=== PATIENT | female | born 1995 | race American Indian/Alaskan Native ===

== ENCOUNTER 2017-02-16 05:40 | Inpatient (IN) | payer MEDICAID ==
[2017-02-16 06:34] LABS: Bacteria,Urine 1+ /HPF (Negative); Bilirubin,Urine NEG (Negative); Blood,Urine SM (Negative); Ketones,Urine NEG (Negative); Leukocyte Esterase,Urine LG (Negative); Mucus,Urine FEW /HPF; Nitrite,Urine NEG (Negative); Protein,Urine <15 mg/dL mg/dL (Negative); Urobilinogen,Urine < 2.0 mg/dL (<2.0)
[2017-02-16] MEDS ORDERED: ceFAZolin 2 GM in NACL 0.9% 100 ML IV ONE (07:07)
[2017-02-16] MEDS ORDERED: LACTATED RINGERS 1,000 ML IV SCH (07:08)
[2017-02-16] MEDS ORDERED: TYLENOL PO ONE (07:17)
[2017-02-16] MEDS ORDERED: MAGNESIUM SULFATE 4GM/100ML 4 GM/100 ML BAG IV ONE (09:06)
[2017-02-16] MEDS ORDERED: BRETHINE SUB-Q ONE (09:06)
[2017-02-16] MEDS: CELESTONE SOLUSPAN IM SCH (10:00)
[2017-02-16] MEDS ORDERED: MAGNESIUM SULFATE 40GM/1000ML 40 GM/1,000 ML BAG IV SCH (10:00)
[2017-02-16] MEDS: LACTATED RINGERS 1,000 ML IV SCH ×2 (10:20→22:34)
[2017-02-16 11:18] LABS: Basophils % (Auto) 0.3 % (0.0-1.8); Hematocrit 27.5 % (30.3-42.9); Hemoglobin 9.5 gm/dl (10.1-14.3); Mean Corpuscular HGB Conc 35 % (30-34); Mean Corpuscular Hemoglobin 29 pg (28-32); Mean Corpuscular Volume 84 fl (79-97); Platelet Count 192 K/mm3 (140-440); Red Blood Count 3.26 M/mm3 (3.65-5.03); Red Cell Distribution Width 13.3 % (13.2-15.2); White Blood Count 10.7 K/mm3 (4.5-11.0)
[2017-02-16] MEDS ORDERED: POLYCILLIN/NS 2 GM/100 ML 2 GM/100 ML BAG IV ONE (12:00)
[2017-02-16] MEDS ORDERED: FLAGYL PO ONE (17:30)
[2017-02-16] MEDS ORDERED: AMBIEN PO PRN (23:21)
[2017-02-16] MEDS ORDERED: NORCO 5/325 PO PRN (23:21)
[2017-02-16] MEDS ORDERED: TYLENOL PO PRN (23:22)
[2017-02-17] MEDS: CELESTONE SOLUSPAN IM SCH (09:42)
--- NOTE | 2017-02-17 13:42 | History and Physical Report ---
History of Present Illness Date of examination: 02/17/17 Date of admission: 02/16/17 05:59 History of present illness: 21yo EDC 04/07/17 @ 32.6 weeks gestation presented to triage with c/o regular contractions and was found to be 3cm on exam. Patient admitted and received Magnesium Sulfate and steroids. Today denies contraction, reports FM, denies VB or LOF. Past History Past Medical History: no pertinent history Past Surgical History: no surgical history Family/Genetic History: none Social history: no significant social history - Obstetrical History Expected Date of Delivery: 04/07/17 Actual Gestation: 33 Week(s) 0 Day(s) : 4 Para: 1 Hx # Term Pregnancies: 1 Number of Living Children: 1 Medications and Allergies Allergies Allergy/AdvReac Type Severity Reaction Status Date / Time No Known Allergies Allergy Verified 09/14/14 20:12 Home Medications Medication Instructions Recorded Confirmed Last Taken Type No Known Home Medications [No 02/16/17 02/16/17 Unknown History Reported Home Medications] Active Meds: Active Medications Acetaminophen (Tylenol) 1,000 mg PO Q6H PRN PRN Reason: Pain, Mild (1-3) Last Admin: 02/16/17 23:40 Dose: 1,000 mg Acetaminophen/Hydrocodone Bitart ([place] 5/325) 2 each PO Q4H PRN PRN Reason: Pain, Moderate (4-6) Betamethasone Acet/Betameth SodPhos ([place] Soluspan) 12 mg IM Q24HR AIDAN Last Admin: 02/17/17 09:42 Dose: 12 mg Lactated Ringer's (Lactated Ringers) 1,000 mls @ 999 mls/hr IV DIRECT AIDAN Last Admin: 02/16/17 07:30 Dose: 999 mls/hr Lactated Ringer's (Lactated Ringers) 1,000 mls @ 75 mls/hr IV DIRECT AIDAN Last Admin: 02/16/17 22:34 Dose: 75 mls/hr Magnesium Sulfate (Magnesium Sulfate 40gm/1000ml) 40 gm in 1,000 mls @ 50 mls/ hr IV DIRECT AIDAN PRN Reason: 2 GM/HR Last Infusion: 02/16/17 10:50 Dose: 1.5 gm/hr, 37.5 mls/hr Zolpidem Tartrate (Ambien) 5 mg PO QHS PRN PRN Reason: Sleep Review of Systems All systems: negative Genitourinary: no vaginal bleeding, no vaginal discharge, no leakage of fluid, no genital sores, no contractions - Vital Signs Vital signs: Vital Signs Temp Pulse Resp BP 98.1 F 72 18 116/78 02/16/17 06:11 02/16/17 06:11 02/16/17 06:11 02/16/17 06:11 Temp Pulse Resp BP Pulse Ox 97.4 F L 99 H 14 110/55 99 02/17/17 08:54 02/17/17 13:19 02/17/17 08:54 02/17/17 13:19 02/16/17 22:34 - Physical Exam Genitourinary (Female): Positive: normal external genitalia, normal perenium - Obstetrical FHR: category 1 Uterine Contraction Monitor Mode: External Uterine Contraction Frequency (min): occasional Uterine Contraction Pattern: Irregular Uterine Tone Measurement Phase: Resting Uterine Contraction Intensity: Mild Results Result Diagrams: 02/16/17 10:36 Abnormal lab results 02/16/17 02/17/17 02/17/17 Range/Units 18:48 00:19 06:04 Magnesium 5.40 H 5.60 H 5.90 H (1.7-2.3) mg/dL 02/17/17 Range/Units 12:00 Magnesium 6.00 H (1.7-2.3) mg/dL All other labs normal. Assessment and Plan A: IUP at 32.6 week gestation Labor S/P Magnesium Sulfate and Steroid administration P: MD mehta't
--- NOTE | 2017-02-18 07:13 | Admit Criteria Form ---
Admission Criteria Documentation: LABOR, THREATENED Clinical Indications for Admission to Inpatient Care (Place 'X' for any and all applicable criteria): Admission to inpatient status for two mid-nights or more is indicated for ANY ONE of the following 1,2,3: [ ]I. Condition requiring premature delivery (eg, premature rupture of membranes with nonreassuring status, chorioamnionitis) [A]. See Vaginal Delivery guideline as appropriate [ ]II. premature rupture of membranes (PPROM) (eg, for monitoring of well-being, development of chorioamnionitis)[A][B] [ ]III. distress or demise [ ]IV. Significant maternal disease (eg, infection) identified (eg, pyelonephritis, pneumonia) that requires initial inpatient treatment (eg, IV antibiotics, close monitoring) [ ]V. Significant vaginal bleeding or any vaginal bleeding with known placental previa, vasa previa, or placenta accreta.(7)(8) See Delivery guideline as appropriate. [ ]. Complications of tocolytic treatment (eg, pulmonary edema, hypotension) (9)(10) [X]VII. Inpatient admission required rather than observation care (Also use Labor, Threatened: Observation Care Criteria as appropriate) because of 1 or more of the following: [X]a) Continued monitoring that requires inpatient care [ ]b) Tocolytic therapy needed that requires inpatient care [ ]c) Inability to stop labor. See Vaginal Delivery or Delivery guideline as appropriate. Extended stay beyond goal length of stay may be needed for (1)(2) [ ]a) Significant infection (eg, pneumonia,chorioamnionitis)(17) [ ]b) Continued uterine contractions [ ]c) demise [ ]d) Continued vaginal bleeding or placental abnormality [ ]e) Complications of tocolytic treatment (eg, pulmonary edema, hypotension)( 15) [ ]f) Expectant management of premature rupture of membranes[A] The original [employer] [facility] content created by Macey Fox has been revised. The portions of the content which have been revised are identified through the use of italic text or in bold, and Macey Fox has neither reviewed nor approved the modified material. All other unmodified content is copyright [facility] [employer]. Please see references footnoted in the original [facility] edition 2017 Admission Criteria Met: Yes
--- NOTE | 2017-02-18 08:43 | Progress Note ---
Assessment and Plan A/P IUP 33 weeks labor s/p mag s/p BMZ UTi- will treat with abx ( rocephin) continue close observation consult with [facility] ( high risk) Subjective - Subjective Date of service: 02/18/17 Principal diagnosis: labor, s/p mag and steroids Patient reports: movement normal, no new complaints, no loss of fluid, no vaginal bleeding, no contractions Objective - Vital Signs Vital Signs: Vital Signs - 12hr 02/17/17 02/17/17 02/17/17 20:42 20:47 20:52 Temperature Pulse Rate 94 H 82 98 H Respiratory Rate Blood Pressure O2 Sat by Pulse 99 99 98 Oximetry 02/17/17 02/17/17 02/17/17 20:57 21:02 21:07 Temperature Pulse Rate 95 H 99 H 84 Respiratory Rate Blood Pressure O2 Sat by Pulse 98 97 98 Oximetry 02/17/17 02/17/17 02/17/17 21:12 21:17 21:22 Temperature Pulse Rate 92 H 82 91 H Respiratory Rate Blood Pressure O2 Sat by Pulse 98 98 98 Oximetry 02/17/17 02/17/17 02/17/17 21:27 21:32 21:37 Temperature Pulse Rate 100 H 84 85 Respiratory Rate Blood Pressure O2 Sat by Pulse 99 98 97 Oximetry 02/17/17 02/17/17 02/17/17 21:42 21:47 21:52 Temperature Pulse Rate 87 88 91 H Respiratory Rate Blood Pressure O2 Sat by Pulse 97 97 97 Oximetry 02/17/17 02/17/17 02/17/17 21:57 22:02 22:07 Temperature Pulse Rate 86 92 H 88 Respiratory Rate Blood Pressure O2 Sat by Pulse 97 97 97 Oximetry 02/17/17 02/17/17 02/17/17 22:12 22:17 22:22 Temperature Pulse Rate 91 H 93 H 95 H Respiratory Rate Blood Pressure O2 Sat by Pulse 97 97 99 Oximetry 02/17/17 02/17/17 02/17/17 22:27 22:32 22:44 Temperature Pulse Rate 75 78 87 Respiratory Rate Blood Pressure O2 Sat by Pulse 99 99 100 Oximetry 02/17/17 02/17/17 02/17/17 22:49 22:54 22:59 Temperature Pulse Rate 75 81 85 Respiratory Rate Blood Pressure O2 Sat by Pulse 98 98 98 Oximetry 02/17/17 02/17/17 02/17/17 23:04 23:09 23:14 Temperature Pulse Rate 91 H 87 87 Respiratory Rate Blood Pressure O2 Sat by Pulse 98 98 97 Oximetry 02/17/17 02/17/17 02/17/17 23:19 23:24 23:29 Temperature Pulse Rate 98 H 90 86 Respiratory Rate Blood Pressure O2 Sat by Pulse 98 98 98 Oximetry 02/17/17 02/17/17 02/17/17 23:34 23:39 23:44 Temperature Pulse Rate 92 H 88 94 H Respiratory Rate Blood Pressure O2 Sat by Pulse 98 98 99 Oximetry 02/17/17 02/17/17 02/17/17 23:49 23:54 23:59 Temperature Pulse Rate 92 H 87 95 H Respiratory Rate Blood Pressure O2 Sat by Pulse 99 98 98 Oximetry 02/18/17 02/18/17 02/18/17 00:04 00:09 00:14 Temperature Pulse Rate 90 96 H 90 Respiratory Rate Blood Pressure O2 Sat by Pulse 98 99 98 Oximetry 02/18/17 02/18/17 02/18/17 00:19 00:24 00:29 Temperature Pulse Rate 92 H 91 H 93 H Respiratory Rate Blood Pressure O2 Sat by Pulse 98 98 98 Oximetry 02/18/17 02/18/17 02/18/17 00:34 00:39 00:44 Temperature Pulse Rate 94 H 94 H 94 H Respiratory Rate Blood Pressure O2 Sat by Pulse 99 98 98 Oximetry 02/18/17 02/18/17 02/18/17 00:49 00:54 00:59 Temperature Pulse Rate 92 H 89 96 H Respiratory Rate Blood Pressure O2 Sat by Pulse 97 98 98 Oximetry 02/18/17 02/18/17 02/18/17 01:04 01:09 01:14 Temperature Pulse Rate 95 H 96 H 93 H Respiratory Rate Blood Pressure O2 Sat by Pulse 98 98 98 Oximetry 02/18/17 02/18/17 02/18/17 01:19 01:24 01:29 Temperature Pulse Rate 93 H 91 H 91 H Respiratory Rate Blood Pressure O2 Sat by Pulse 98 98 98 Oximetry 02/18/17 02/18/17 02/18/17 01:34 01:39 01:44 Temperature Pulse Rate 90 90 92 H Respiratory Rate Blood Pressure O2 Sat by Pulse 98 98 98 Oximetry 02/18/17 02/18/1717 01:49 01:54 04:39 Temperature Pulse Rate 86 90 85 Respiratory Rate Blood Pressure 108/60 O2 Sat by Pulse 98 98 Oximetry 02/18/17 02/18/17 02/18/17 04:43 07:19 07:21 Temperature 98.7 F Pulse Rate 93 H 101 H Respiratory 16 Rate Blood Pressure 99/55 O2 Sat by Pulse 98 Oximetry 02/18/17 02/18/17 02/18/17 07:24 07:26 07:31 Temperature 98.2 F Pulse Rate 87 96 H 81 Respiratory 20 Rate Blood Pressure 99/55 O2 Sat by Pulse 98 98 Oximetry 02/18/17 02/18/17 02/18/17 07:36 07:41 07:46 Temperature Pulse Rate 86 90 97 H Respiratory Rate Blood Pressure O2 Sat by Pulse 97 96 97 Oximetry - Exam Breasts: deferred Cardiovascular: Regular rate, Normal S1 Lungs: Clear to auscultation, Normal air movement Abdomen: Present: normal appearance, soft, normal bowel sounds. Absent: distention, tenderness, guarding Uterus: Present: normal, firm. Absent: bogginess, tenderness FHR: auscultation normal, category 1 Extremities: normal Deep Tendon Reflex Grade: Normal +2 - Labs Labs: Abnormal Labs 02/16/17 02/16/17 02/16/17 10:36 18:48 Unknown RBC 3.26 L Hgb 9.5 L Hct 27.5 L MCHC 35 H [place] % (Auto) 8.4 H [place] # 0.9 H Seg Neutrophils % 75.8 H Seg Neutrophils # 8.1 H Magnesium 5.40 H Urine pH 8.0 H Urine WBC (Auto) 66.0 H 02/17/17 02/17/17 02/17/17 00:19 06:04 12:00 RBC Hgb Hct MCHC [place] % (Auto) [place] # Seg Neutrophils % Seg Neutrophils # Magnesium 5.60 H 5.90 H 6.00 H Urine pH Urine WBC (Auto) Laboratory Results - last 24 hr 02/17/17 12:00 Magnesium 6.00 H
[2017-02-18] MEDS: LACTATED RINGERS 1,000 ML IV SCH (09:28)
[2017-02-18] MEDS ORDERED: ROCEPHIN/NS 1 GM/50 ML 1 GM/50 ML BAG IV SCH (10:00)
--- NOTE | 2017-02-18 12:00 | Consultation ---
History of Present Illness Reason for consult: other (21yo EDC 04/07/17 @ 33.1 weeks gestation presented to triage on 02/16/17 with c/o regular contractions and was found to be 3 cm on exam. Patient was admitted and S/P Magnesium Sulfate and steroids for FLM . Consult requested today for discharge assessment . Today denies contraction, reports FM, denies VB , Temp/chills or LOF. ) Past History Past Medical History: no pertinent history Past Surgical History: no surgical history Family/Genetic History: none - Obstetrical History : 4 Medications and Allergies Allergies Allergy/AdvReac Type Severity Reaction Status Date / Time No Known Allergies Allergy Verified 09/14/14 20:12 Home Medications Medication Instructions Recorded Confirmed Last Taken Type No Known Home Medications [No 02/16/17 02/16/17 Unknown History Reported Home Medications] Active Meds: Active Medications Acetaminophen (Tylenol) 1,000 mg PO Q6H PRN PRN Reason: Pain, Mild (1-3) Last Admin: 02/16/17 23:40 Dose: 1,000 mg Acetaminophen/Hydrocodone Bitart ([place] 5/325) 2 each PO Q4H PRN PRN Reason: Pain, Moderate (4-6) Betamethasone Acet/Betameth SodPhos ([place] Soluspan) 12 mg IM Q24HR AIDAN Last Admin: 02/17/17 09:42 Dose: 12 mg Lactated Ringer's (Lactated Ringers) 1,000 mls @ 75 mls/hr IV DIRECT AIDAN Last Admin: 02/18/17 09:28 Dose: 75 mls/hr Magnesium Sulfate (Magnesium Sulfate 40gm/1000ml) 40 gm in 1,000 mls @ 50 mls/ hr IV DIRECT AIDAN PRN Reason: 2 GM/HR Last Infusion: 02/16/17 10:50 Dose: 1.5 gm/hr, 37.5 mls/hr Ceftriaxone Sodium (Rocephin/Ns 1 Gm/50 Ml) 1 gm in 50 mls @ 100 mls/hr IV Q24HR AIDAN PRN Reason: Protocol Last Admin: 02/18/17 09:30 Dose: 100 mls/hr Zolpidem Tartrate (Ambien) 5 mg PO QHS PRN PRN Reason: Sleep Review of Systems Constitutional: no fever, no chills, no sweats Eyes: deferred Ears, nose, mouth and throat: no headache Cardiovascular: no rapid/irregular heart beat, no edema, no syncope Respiratory: no shortness of breath Gastrointestinal: no abdominal pain, no nausea, no vomiting Genitourinary: no vaginal bleeding, no vaginal discharge, no leakage of fluid, no pelvic pain, no hematuria Rectal Exam: deferred Musculoskeletal: no low back pain Integumentary: no rash Neurological: no seizures, no syncope Psychiatric: no depression Hematologic/Lymphatic: no easy bruising Allergic/Immunologic: no wheezing - Vital Signs Vital signs: Vital Signs Temp Pulse Resp BP 98.1 F 72 18 116/78 02/16/17 06:11 02/16/17 06:11 02/16/17 06:11 02/16/17 06:11 Temp Pulse Resp BP Pulse Ox 98.2 F 97 H 20 99/55 97 02/18/17 07:24 02/18/17 07:46 02/18/17 07:24 02/18/17 07:24 02/18/17 07:46 - Physical Exam Breasts: Positive: deferred Cardiovascular: Regular rate Lungs: Positive: Normal air movement Abdomen: Negative: tenderness, guarding Uterus: Negative: tender Extremities: Negative: tenderness Deep Tendon Reflex Grade: Normal +2 - Obstetrical FHR: category 1 Uterine Contraction Monitor Mode: External (no contractions traced on [place]) Cervical Dilatation: 3 (last SVE performed at [facility] ) Uterine Contraction Pattern: Absent (per TOCO) Results Result Diagrams: 02/16/17 10:36 Abnormal lab results 02/17/17 Range/Units 12:00 Magnesium 6.00 H (1.7-2.3) mg/dL All other labs normal. Ultrasound: other (ordered ) Assessment and Plan A: 1. IUP at 33.1 weeks 2. PTL resolved 3. Reported Dilation of 3 cm 4. Positve STI history - Trichomanisis 5. UTI - treated with Rocephin IVPB 6. NO sxs of Pyelo or chorio 7. Anemia P ( per Dr. Crabtree ) : 1. Obtain PNR . 2. OB U/S ordered 3. Perform SVE 4. Provide Iron prescription 5. Macrobid 100 mg PO BID times 10 days 6. Document negative GC/CT culture 7. Document Urine C+S 6. Consider D/C with the following a) no cervical change b) no regular contraction c) reassuring behavior - OB U/S and EFM tracing d) afebrile status 7. order desk caller [facility] provider - Dr. Sanchez
[2017-02-18 15:45] VITALS: BP 98/53
--- NOTE | 2017-02-18 18:22 | Discharge Summary ---
Providers - Providers Date of Admission: 02/18/17 07:26 Date of discharge: 02/18/17 Attending physician: JANNY DOUGLAS 02/18/17 08:50 Consult to Physician [CONS] Routine Consulting Provider: Reason For Exam: labor Place consult to:: MUNIR Was contact made?: No Primary care physician: JANNY DOUGLAS Hospitalization Reason for admission: IUP - Discharge diagnosis: other (resolved labor) Hospital course: Patient was admitted and noted to be 3cm and senthil. Patient was given Mag and steroids 2 doses. She did well. Ua + for UTI given Rocephin for UTI. She was also treated with flagyl for trichomoniasis that was also treated in her . She had US with BPP 12/20 ( breathing).She has been acontractile for > 24 hrs. The NST was reactive cat 1. She is discharged home with precautions of PTL and Rx for Macrobid 100 mg for 10 days. Sheis to follow up with [facility] and this week. All questions answered Condition at discharge: Good Disposition: DC-01 TO HOME OR SELFCARE Plan - Provider Discharge Summary Activity: no sex for 6 weeks, no strenuous exercise Diet: routine Additional instructions: [] Smoking cessation referral if applicable(refer to patient education folder for contact #) [] Refer to [facility] Booklet Call your doctor immediately for: * Fever > 100.5 * Heavy vaginal bleeding ( >1 pad per hour) * Severe persistent headache * Shortness of breath * Reddened, hot, painful area to leg or breast * Drainage or odor from incision. * Keep incision clean and dry at all times and follow doctor's instructions regarding bathing/showering recommneded pelvic rest, kick counts, ptl precautions - Follow up plan Follow up: JANNY DOUGLAS MD [Primary Care Provider] - 7 Days Forms: [facility] Discharge Summary, Work/School Excuse Out Patient
--- NOTE | 2017-02-19 08:10 | Ultrasound Report ---
ULTRASOUND OB FOLLOWUP ULTRASOUND OB TRANSVAGINAL History: labor, well being, UTI. Technique: Transabdominal and transvaginal ultrasound with Doppler interrogation. Gestation: Single Position: Cephalic Amniotic Fluid: Normal NIRANJAN = 7.2 cm Placenta: Anterior Placental Grade: 2 Heart Rate: 150 BPM Cervical length: 1.1 cm (Normal > 3 cm) BPD: 8.1 cm = 32 w 4 d HC: 29.6 cm = 32 w 5 d AC: 29.5 cm = 33 w 4 d FL: 6.7 cm = 34 w 4 d HC/AC Ratio: 1.0 Cephalic Index: 82.1 Estimated Weight: 2241 grams Clinical age = 33 w 1 d EDC: 04/07/17 US Gest. Age = 33 w 3 d EDC: 04/05/17
--- NOTE | 2017-02-19 08:11 | Ultrasound Report ---
ULTRASOUND BIOPHYSICAL PROFILE: History: labor, UTI, well being Technique: Transabdominal ultrasound with Doppler interrogation. 0 - breathing movements 2 - movements 2 - posture and tone 2 - Qualitative amniotic fluid volume 6 - TOTAL SCORE OF POSSIBLE 8 Heart Rate (bpm) 133
--- NOTE | 2017-02-19 08:12 | Ultrasound Report ---
ULTRASOUND OB VELOCITY MEASURING UMBILICAL ARTERY History: labor, well being. Findings: Transabdominal ultrasound with spectral Doppler interrogation was performed on 3 segments of the umbilical cord. heart rate measures 155 beats per minutes. The spectral waveforms are normal and persistent. Systolic/diastolic ratio average measures 2.3. The resistive index average measures 0.55.
== END 2017-02-18 19:35 | disposition home or self-care (01) | DRG 778 ==
LOC: TRG 05:40 → LD 05:59 → OBSVTOIN 02-18 07:26
PROVIDERS: ADMIT Obstetrics & Gynecology; ATTEND Obstetrics & Gynecology
DX: O60.03 Preterm labor without delivery, third trimester (principal); O23.43 Unspecified infection of urinary tract in pregnancy, third trimester; O99.013 Anemia complicating pregnancy, third trimester; D64.9 Anemia, unspecified; O98.313 Other infections with a predominantly sexual mode of transmission complicating pregnancy, third trimester; A59.9 Trichomoniasis, unspecified; Z3A.33 33 weeks gestation of pregnancy
CPT/HCPCS: 36415; 59025; 76816; 76817; 76819; 76820; 81001; 83735; 85025; 86850; 86900; 86901; 96360; 96365; 96372; G0378; J0290; J0690; J0696; J0702; J3105; J3475; J7120

== ENCOUNTER 2017-02-28 09:44 | Inpatient (IN) | payer MEDICAID ==
[2017-02-28] MEDS ORDERED: XYLOCAINE 2% INFILTRATI ONE ×2 (09:47→13:49)
[2017-02-28] MEDS ORDERED: ePHEDrine SULFATE IV PRN (09:47)
[2017-02-28] MEDS ORDERED: ZOFRAN IV PRN ×2 (09:47→14:09)
[2017-02-28] MEDS ORDERED: SUBLIMAZE IV PRN (09:47)
[2017-02-28] MEDS ORDERED: BRETHINE IVP PRN (09:47)
[2017-02-28] MEDS ORDERED: BRETHINE SUB-Q PRN (09:47)
[2017-02-28] MEDS ORDERED: CELESTONE SOLUSPAN IM ONE (09:51)
[2017-02-28] MEDS ORDERED: PITOCin/NS 30 UNIT/500ML 30 UNITS/500 ML BAG IV SCH (10:00)
[2017-02-28] MEDS ORDERED: PITOCin/NS 20 UNIT/1000ML DRIP 20 UNITS/1,000 ML BAG IV SCH (10:00)
[2017-02-28] MEDS ORDERED: STADOL IV PRN (10:00)
[2017-02-28] MEDS ORDERED: POLYCILLIN/NS 2 GM/100 ML 2 GM/100 ML BAG IV ONE (10:00)
[2017-02-28] MEDS ORDERED: LACTATED RINGERS 1,000 ML IV SCH (10:00)
[2017-02-28] MEDS ORDERED: NARCAN 0.4 MG/1 ML IV PRN (10:00)
[2017-02-28 11:15] LABS: Hematocrit 29.7 % (30.3-42.9); Hemoglobin 9.6 gm/dl (10.1-14.3); Mean Corpuscular HGB Conc 32 % (30-34); Mean Corpuscular Hemoglobin 28 pg (28-32); Mean Corpuscular Volume 85 fl (79-97); Platelet Count 236 K/mm3 (140-440); Red Blood Count 3.49 M/mm3 (3.65-5.03); Red Cell Distribution Width 13.5 % (13.2-15.2); White Blood Count 15.9 K/mm3 (4.5-11.0)
[2017-02-28] MEDS ORDERED: POLYCILLIN/NS 1 GM/50 ML 1 GM/50 ML BAG IV SCH (14:00)
[2017-02-28] MEDS ORDERED: MILK OF MAGNESIA PO PRN (14:09)
[2017-02-28] MEDS ORDERED: TORADOL IV PRN (14:09)
[2017-02-28] MEDS ORDERED: LANSINOH TP PRN (14:09)
[2017-02-28] MEDS ORDERED: TYLENOL PO PRN (14:09)
[2017-02-28] MEDS ORDERED: TUCKS PAD TP PRN (14:09)
[2017-02-28] MEDS ORDERED: PHENERGAN PO PRN (14:09)
[2017-02-28] MEDS ORDERED: ANUCORT-HC PR PRN (14:09)
[2017-02-28] MEDS ORDERED: PERCOCET 5/325 PO PRN (14:09)
[2017-02-28] MEDS ORDERED: DULCOLAX PR PRN (14:09)
[2017-02-28] MEDS ORDERED: PHENERGAN PR PRN (14:09)
[2017-02-28] MEDS ORDERED: NORCO 5/325 PO PRN (14:09)
[2017-02-28] MEDS ORDERED: BENADRYL PO PRN (14:09)
--- NOTE | 2017-02-28 14:42 | History and Physical Report ---
History of Present Illness Date of examination: 02/28/17 Date of admission: 02/28/17 09:44 Chief complaint: leaking water History of present illness: This is a 22 yo at 34+4 weeks came in c/o leaking since yesterday at 11pm. She did not come to triage as insrturcted bu waited until appt with Dr. Shaffer and noted to be grossly ruptured. She was sent to labor and delivery admission. Patient has had care since 10 weeks and for admission. Hx of chlamydia and trich and treated. 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 denies: smoking, alcohol abuse, prescription drug abuse - Obstetrical History Expected Date of Delivery: 04/07/17 Actual Gestation: 34 Week(s) 4 Day(s) : 5 Para: 1 Hx # Term Pregnancies: 0 Number of Pregnancies: 0 Spontaneous Abortions: 2 Induced : 1 Number of Living Children: 1 Medications and Allergies Allergies Allergy/AdvReac Type Severity Reaction Status Date / Time No Known Allergies Allergy Verified 09/14/14 20:12 Home Medications Medication Instructions Recorded Confirmed Last Taken Type No Known Home Medications [No 02/16/17 02/16/17 Unknown History Reported Home Medications] Active Meds: Active Medications Acetaminophen (Tylenol) 650 mg PO Q4H PRN PRN Reason: Pain MILD(1-3)/Fever >100.5/LUNA Acetaminophen/Hydrocodone Bitart ([place] 5/325) 2 each PO Q6H PRN PRN Reason: Pain, Moderate (4-6) Bisacodyl (Dulcolax) 10 mg IN BID PRN PRN Reason: Constipation Butorphanol Tartrate (Stadol) 2 mg IV Q2H PRN PRN Reason: Pain , Severe (7-10) Diphenhydramine HCl (Benadryl) 25 mg PO Q6H PRN PRN Reason: Itching Diphtheria/Tetanus/Acell Pertussis (Boostrix) 0.5 ml IM .ONCE ONE Stop: 03/01/17 14:10 Docusate Sodium (Colace) 100 mg PO BID AIDAN Fentanyl (Sublimaze) 100 mcg IV Q2H PRN PRN Reason: Labor Pain Last Admin: 02/28/17 13:00 Dose: 100 mcg Hydrocortisone Acetate (Anucort-Hc) 25 mg IN BID PRN PRN Reason: Hemorrhoids Ampicillin Sodium (Polycillin/Ns 1 Gm/50 Ml) 1 gm in 50 mls @ 100 mls/hr IV Q4HR AIDAN PRN Reason: Protocol Last Admin: 02/28/17 13:38 Dose: 100 mls/hr Lactated Ringer's (Lactated Ringers) 1,000 mls @ 125 mls/hr IV DIRECT AIDAN Last Admin: 02/28/17 10:31 Dose: 125 mls/hr Oxytocin/Sodium Chloride (Pitocin/Ns 20 Unit/1000ml Drip) 20 units in 1,000 mls @ 125 mls/hr IV DIRECT AIDAN Oxytocin/Sodium Chloride (Pitocin/Ns 30 Unit/500ml) 30 units in 500 mls @ 4 mls /hr IV TITR AIDAN PRN Reason: Protocol Last Titration: 02/28/17 12:30 Dose: 16 ml/hr, 16 mls/hr Ibuprofen (Motrin) 600 mg PO Q6H AIDAN Ketorolac Tromethamine (Toradol) 30 mg IV Q6H PRN PRN Reason: Pain, Moderate (4-6) Stop: 03/05/17 14:08 Magnesium Hydroxide (Milk Of Magnesia) 30 ml PO HS PRN PRN Reason: Constipation Measles/Mumps/Rubella Vaccine Live (M-M-R Ii Vaccine) 0.5 ml SUB-Q .ONCE ONE Stop: 03/01/17 14:10 Mineral Oil (Mineral Oil) 30 ml PO QHS PRN PRN Reason: Constipation Multi-Ingredient Ointment (Lansinoh) 1 applic TP PRN PRN PRN Reason: Sore Nipples Multivitamins/Iron/Calcium ( Vitamin) 1 each PO QDAY [facility] Naloxone HCl (Narcan 0.4 Mg/1 Ml) 0.1 mg IV Q2MIN PRN PRN Reason: Res Rate </= 8 or 02 SAT < 92% Ondansetron HCl (Zofran) 4 mg IV Q8H PRN PRN Reason: Nausea And Vomiting Ondansetron HCl (Zofran) 4 mg IV Q8H PRN PRN Reason: Nausea And Vomiting Oxycodone/Acetaminophen (Percocet 5/325) 1 tab PO Q6H PRN PRN Reason: Pain, Moderate (4-6) Promethazine HCl (Phenergan) 25 mg IN Q6H PRN PRN Reason: Nausea And Vomiting Promethazine HCl (Phenergan) 25 mg PO Q6H PRN PRN Reason: Nausea And Vomiting Senna/Docusate Sodium (Senokot S) 2 tab PO Q12H AIDAN Sodium Chloride (Sodium Chloride Flush Syringe 10 Ml) 10 ml IV PRN NR Witch Sulma/Glycerin (Tucks Pad) 1 each TP PRN PRN PRN Reason: Hemorrhoid/cleansing/soothing Review of Systems Genitourinary: leakage of fluid - Vital Signs Vital signs: Vital Signs Pulse BP 90 116/71 02/28/17 10:52 02/28/17 10:52 Temp Pulse Resp BP Pulse Ox 98.3 F 82 16 112/74 02/28/17 12:22 02/28/17 14:05 02/28/17 12:22 02/28/17 14:05 - Physical Exam Breasts: Positive: normal Cardiovascular: Regular rate, Normal S1 Lungs: Positive: Clear to auscultation, Normal air movement Abdomen: Positive: normal appearance, soft, normal bowel sounds. Negative: distention, tenderness Genitourinary (Female): Positive: normal external genitalia, normal perenium Vulva: both: normal Vagina: Positive: normal moisture Uterus: Positive: normal size, enlarged, normal contour Anus/Rectum: Positive: normal perianal skin Extremities: Positive: normal Deep Tendon Reflex Grade: Normal +2 - Obstetrical FHR: category 1 Uterine Contraction Monitor Mode: Palpation Cervical Dilatation: 4 Cervical Effacement Percentage: 80 station: -1 Uterine Contraction Pattern: Regular Uterine Tone Measurement Phase: Contraction Uterine Contraction Intensity: Moderate Results Result Diagrams: 02/28/17 10:46 Abnormal lab results 02/28/17 Range/Units 10:46 WBC 15.9 H (4.5-11.0) K/mm3 RBC 3.49 L (3.65-5.03) M/mm3 Hgb 9.6 L (10.1-14.3) gm/dl Hct 29.7 L (30.3-42.9) % All other labs normal. Assessment and Plan A/P IUP 34+4 , PPROM BMZ x1 ( s/p >6 days ago) Ampiciliin for offer epidural pitocin for augmentation expect vaginal delivery
--- NOTE | 2017-02-28 14:54 | Procedure Note ---
OB Delivery Note - Delivery Date of Delivery: 02/28/17 Surgeon: MISHA ADAMES Estimated blood loss: 200cc - Vaginal Delivery presentation: vertex Delivery position: OA Intrapartum events: labor-<37 weeks Delivery augmentation: pitocin Delivery monitor: external FHT, external uterine Route of delivery: Delivery placenta: spontaneous Delivery cord: nuchal cord, true knot, 3 umbilical vessels Episiotomy: none Delivery laceration: vaginal side wall Delivery repair: vicryl Anesthesia: local Delivery comments: Patient was noted to be c/c/e at 130 and commneced to pushing. She delivered a viable female infant at 145 Apgars 8 and * wt 4 # 11 Oz. patient noted to hacve a nuchal cord which was reduced prior to delivery and body cord and foot cord with true note noted. the cord was clamped and cut and placed on mom chest. suction of nasopharynx. Placenta delivered 150 intact with true knot. Bilateral side david noted hemostatic. EBL 200 cc . Patient tolerated proceuree well - Infant A at 1 minute: 8 at 5 minutes: 8 Infant Gender: Female (wt 4 pounds 11 oz)
[2017-02-28] MEDS ORDERED: PRENATAL VITAMIN PO SCH (15:00)
[2017-02-28] MEDS ORDERED: SODIUM CHLORIDE FLUSH SYRINGE 10 ML IV NR (15:00)
[2017-02-28] MEDS: COLACE PO SCH ×2 (16:39→23:53)
[2017-02-28] MEDS: SENOKOT S PO SCH (16:39)
[2017-02-28] MEDS: MOTRIN PO SCH ×2 (16:39→23:53)
[2017-02-28] MEDS ORDERED: MINERAL OIL PO PRN (22:00)
[2017-03-01 01:49] LABS: Hematocrit 27.5 % (30.3-42.9); Hemoglobin 9.2 gm/dl (10.1-14.3)
[2017-03-01] MEDS ORDERED: BOOSTRIX IM ONE (06:00)
[2017-03-01] MEDS ORDERED: M-M-R II VACCINE SUB-Q ONE (06:00)
[2017-03-01] MEDS: MOTRIN PO SCH ×2 (07:15→19:28)
--- NOTE | 2017-03-01 08:38 | Progress Note ---
Assessment and Plan A: PPD#1 s/p at 34 wks secondary to PPROM, asymptomatic anemia P: Routine care. Anticipate discharge tomorrow. Subjective - Subjective Date of service: 03/01/17 Principal diagnosis: PPROM at 34 wks Interval history: Pt without complaints. Patient reports: appetite normal, voiding normally, ambulating normally : in NICU Objective - Vital Signs Latest vital signs: Vital Signs Temp Pulse Resp BP 03/01/17 05:25 98.4 F 67 16 100/54 02/28/17 23:05 98.8 F 67 18 96/58 02/28/17 19:00 98.5 F 66 18 100/52 02/28/17 16:25 97.8 F 71 18 109/57 02/28/17 15:20 99.2 F 80 18 110/65 02/28/17 14:50 74 107/68 02/28/17 14:35 86 105/62 02/28/17 14:20 79 102/64 02/28/17 14:05 82 112/74 02/28/17 13:55 76 105/72 02/28/17 13:03 75 114/70 02/28/17 12:56 91 H 120/86 02/28/17 12:22 98.3 F 66 16 116/65 02/28/17 10:52 90 116/71 Intake and Output 02/28/17 03/01/17 03/01/17 22:59 06:59 14:59 Intake Total 480 180 Output Total 550 Balance -70 180 Intake: Oral 120 Intake, Free Water 360 180 Output: Urine 550 Void 550 Other: Total, Intake Amount 120 Total, Output Amount 300 # Voids Void 1 1 - Exam Breasts: Present: deferred Cardiovascular: Present: Regular rate Lungs: Present: Clear to auscultation Abdomen: Present: soft Uterus: Present: fundal height at umbilicus Extremities: Present: normal - Labs Labs: Abnormal lab results 02/28/17 03/01/17 Range/Units 10:46 01:28 WBC 15.9 H (4.5-11.0) K/mm3 RBC 3.49 L (3.65-5.03) M/mm3 Hgb 9.6 L 9.2 L (10.1-14.3) gm/dl Hct 29.7 L 27.5 L (30.3-42.9) %
--- NOTE | 2017-03-01 14:23 | Discharge Summary ---
Providers - Providers Date of Admission: 02/28/17 09:44 Date of discharge: 03/02/17 Attending physician: MISHA ADAMES MD Primary care physician: MISHA ADAMES MD Hospitalization Reason for admission: rupture of membranes Delivery: Procedure details: Please see delivery note. Episiotomy: none Laceration: vaginal side wall Other procedures: none complications: none Discharge diagnosis: delivery [place] baby: female Hospital course: Pt was admitted for PPROM at 34 wks and went on to have an . Her course was uncomplicated and she met discharge criteria on PPD#2. Disposition: DC-01 TO HOME OR SELFCARE - Discharge Diagnoses (1) premature rupture of membranes (PPROM) delivered, current hospitalization Status: Acute (2) Anemia Status: Acute Qualifiers: Anemia type: unspecified type Iron deficiency anemia type: I Vitamin B12 deficiency anemia type: V Folate deficiency anemia type: F Bone marrow failure anemia type: B Hemolytic anemia type: H Other causes of anemia: O Chronic kidney disease stage: C Qualified Code(s): D64.9 - Anemia, unspecified Plan - Discharge Medications Prescriptions: Ferrous Sulfate [Feosol 325 MG tab] 325 mg PO BID #60 tablet NS HYDROcodone/APAP 5-325 [[place] 5/325] 1 each PO Q6HR PRN #30 tablet PRN Reason: Pain Ibuprofen [Motrin] 600 mg PO Q6H PRN #30 tablet PRN Reason: Pain - Provider Discharge Summary Activity: routine, no sex for 6 weeks, no heavy lifting 4 weeks, no strenuous exercise Diet: routine Instructions: routine Additional instructions: [] Smoking cessation referral if applicable(refer to patient education folder for contact #) [] Refer to [facility] Booklet Call your doctor immediately for: * Fever > 100.5 * Heavy vaginal bleeding ( >1 pad per hour) * Severe persistent headache * Shortness of breath * Reddened, hot, painful area to leg or breast * Drainage or odor from incision. * Keep incision clean and dry at all times and follow doctor's instructions regarding bathing/showering - Follow up plan Follow up: ANAHI KERN MD [Staff Physician] - 03/28/17 ( exam. Please call for appt. )
[2017-03-01] MEDS: SENOKOT S PO SCH ×2 (19:29→22:00)
[2017-03-01] MEDS: COLACE PO SCH (22:00)
[2017-03-02] MEDS: MOTRIN PO SCH ×2 (03:00→12:40)
[2017-03-02] MEDS: SENOKOT S PO SCH (03:00)
[2017-03-02 11:38] VITALS: BP 102/78
[2017-03-02] MEDS: COLACE PO SCH (12:40)
== END 2017-03-02 14:30 | disposition home or self-care (01) | DRG 775 ==
LOC: LD 09:44 → OB 15:26
PROVIDERS: ADMIT Obstetrics & Gynecology; ATTEND Obstetrics & Gynecology
PROC: 10E0XZZ Delivery of Products of Conception, External Approach (ICD-10-PCS; principal; 2017-02-28)
PROC: 0UQGXZZ Repair Vagina, External Approach (ICD-10-PCS; 2017-02-28)
DX: O69.2XX0 Labor and delivery complicated by other cord entanglement, with compression, not applicable or unspecified (principal); O60.14X0 Preterm labor third trimester with preterm delivery third trimester, not applicable or unspecified; O71.4 Obstetric high vaginal laceration alone; O99.03 Anemia complicating the puerperium; D64.9 Anemia, unspecified; Z3A.34 34 weeks gestation of pregnancy; Z37.0 Single live birth
CPT/HCPCS: 36415; 85014; 85018; 85027; 86592; 86850; 86900; 86901; 87086; 88307; J0290; J0702; J1885; J2405; J2590; J3010; J7120

== ENCOUNTER 2022-02-16 13:20 | Emergency (ER) | payer MEDICAID ==
[2022-02-16 13:49] VITALS: BP 107/80
--- NOTE | 2022-02-16 14:36 | XRay Report ---
LEFT SHOULDER 3 VIEW(S) INDICATION / CLINICAL INFORMATION: shoulder pain. COMPARISON: None available. FINDINGS: BONES / JOINT(S): No acute fracture or subluxation. No significant arthritis. SOFT TISSUES: No significant abnormality. ADDITIONAL FINDINGS: None. IMPRESSION: 1. No acute findings. Signer Name: Yvon Kathleen MD Signed: 02/16/2022 2:31 PM Workstation Name: [email or web address]
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
== END 2022-02-16 18:39 | disposition home or self-care (01) ==
LOC: ED 13:20
DX: M25.512 Pain in left shoulder (principal); V89.2XXA Person injured in unspecified motor-vehicle accident, traffic, initial encounter; Y93.89 Activity, other specified; Y92.89 Other specified places as the place of occurrence of the external cause; Y99.8 Other external cause status
CPT/HCPCS: 99283